=== PATIENT | male | born 1965 | race Caucasian/White ===

== ENCOUNTER 2019-04-03 19:50 | Observation (INO) | payer OTHER ==
[2019-04-03] MEDS ORDERED: THIAMINE 200 MG/2 ML IV ONE (20:18)
[2019-04-03] MEDS ORDERED: PROVENTIL 2.5 MG/3 ML NEB IH ONE ×2 (20:19→20:40)
--- NOTE | 2019-04-03 20:29 | ERPHSYRPT ---
- History of Present Illness Time Seen by Provider: 04/03/19 20:14 Source: patient, EMS Exam Limitations: no limitations Patient Subjective Stated Complaint: per ems "reports pt was laying in a yard and was nearly hit by a citizen mowing their lawn" ems reports pt is well known to [facility] and is often found intoxicated in locations around [place]. pt reports he has consumed 1/2 gallon of vodka today, reports he is an alcoholic and has been drinking for 40+ years. pt report history of pancreatitis. pt also reports recent pneumonia, states he is still coughing. Triage Nursing Assessment: pt is aox1, to self only, unaware of the year month and day, pt reports he is in [place]. pt answers some questions appropriately, pupils perrl, afebrile, resps easy and non labored, radial pulses strong and equal, cap refill < 3 seconds, pt skin pink warm dry. pt wretching upon exam. Physician History: 54-year-old white male with history of seizure, COPD, high blood pressure, pancreatitis, anxiety, depression Patient is brought by medics patient was apparently found by a citizen mowing his lawn. Patient states that he has been drinking up to a half a gallon of Vicodin today. Patient does state that he has been short of breath he does have a history of COPD. Past medical history includes seizures, COPD, high blood pressure, pancreatitis , anxiety, depression Patient states she's had OH x2 Social history chronic alcohol use chronic tobacco use denies illicit drug usethey date dissection do okay of I and in no in the andin her chest Timing/Duration: today Severity: moderate Modifying Factors: Improves With: nothing Associated Symptoms: shortness of breath, other (patient admits to drinking 1/2 gallon of vodka today), No nausea, No vomiting, No abdominal pain, No heartburn , No diaphoresis, No cough, No chills, No chest pain, No fever, No headaches, No loss of appetite, No malaise, No rash, No syncope, No seizure, No weakness Allergies/Adverse Reactions: shellfish derived Allergy (Verified 04/03/19 20:12) Hx Tetanus, Diphtheria Vaccination/Date Given: Yes Hx Influenza Vaccination/Date Given: No Hx Pneumococcal Vaccination/Date Given: No Immunizations Up to Date: Yes - Review of Systems Constitutional: No Fever, No Chills Eyes: No Symptoms Ears, Nose, & Throat: No Symptoms Respiratory: Dyspnea, No Cough Cardiac: No Chest Pain, No Edema, No Syncope Abdominal/Gastrointestinal: No Abdominal Pain, No Nausea, No Vomiting, No Diarrhea Musculoskeletal: No Back Pain, No Neck Pain Skin: No Rash Neurological: No Dizziness, No Focal Weakness, No Sensory Changes Psychological: Alcohol Abuse, No Drug Abuse, No Anxiety, No Depression, No Suicidal Ideations, No Homicidal Ideations, No Emotional Lability Endocrine: No Symptoms All Other Systems: Reviewed and Negative - Past Medical History Pertinent Past Medical History: Yes Neurological History: Seizures Cardiac History: Hypertension Respiratory History: COPD GI Medical History: Pancreatitis Psycho-Social History: Anxiety, Depression - Past Surgical History Past Surgical History: Yes Cardiac: Other Other Surgical History: "heart attack x2" - Social History Smoking Status: Current every day smoker Drug Use: none Patient Lives Alone: Yes - Nursing Vital Signs Nursing Vital Signs: Initial Vital Signs Temperature 99.0 F 04/03/19 19:59 Pulse Rate 96 H 04/03/19 19:59 Respiratory Rate 20 04/03/19 19:59 Blood Pressure 162/104 04/03/19 19:59 O2 Sat by Pulse Oximetry 95 04/03/19 19:59 Pain Scale Pain Intensity 8 - Physical Exam General Appearance: no apparent distress, alert, other (Slurry speech) Eye Exam: PERRL/EOMI, eyes nml inspection Ears, Nose, Throat Exam: normal ENT inspection, TMs normal, pharynx normal, moist mucous membranes Neck Exam: normal inspection, non-tender, supple, full range of motion Respiratory Exam: normal breath sounds, lungs clear, No respiratory distress Cardiovascular Exam: regular rate/rhythm, normal heart sounds, normal peripheral pulses, capillary refill <2 sec Gastrointestinal/Abdomen Exam: soft, normal bowel sounds, No tenderness, No mass Back Exam: normal inspection, normal range of motion, No CVA tenderness, No vertebral tenderness Extremity Exam: normal inspection, normal range of motion, pelvis stable Neurologic Exam: alert, oriented x 3, cooperative, surgical garment fitter II-XII nml as tested, normal mood/affect, nml cerebellar function, nml station & gait, sensation nml, No motor deficits Skin Exam: normal color, warm, dry, No rash Lymphatic Exam: No adenopathy SpO2 Interpretation: normal (95%) SpO2: 95 - Course Nursing assessment & vital signs reviewed: Yes EKG Interpreted by Me: RATE (100 bpm), NORMAL AXIS, Other (EKG: Sinus rhythm, 100 beats per minute, large amount of artifact, normal axis, no acute ST or T wave changes) - Radiology Exams Chest X-ray Interpretation: Interpreted by me (chest x ray: no acute disease process noted, positive copd) Ordered Tests: Active Orders 24 hr Category Date Time Status It Recruiter STAT Care 04/03/19 20:18 Active EKG-ER Only STAT Care 04/03/19 20:18 Active IV Insertion STAT Care 04/03/19 20:18 Active CHEST 1 VIEW (PORTABLE) Stat Exams 04/03/19 20:18 Taken ACETAMINOPHEN Stat Lab 04/03/19 20:25 Completed AMYLASE Stat Lab 04/03/19 20:25 Completed CBC W DIFF Stat Lab 04/03/19 20:25 Completed CMP Stat Lab 04/03/19 20:25 Completed ETHYL ALCOHOL Stat Lab 04/03/19 20:25 Completed SALICYLATE Stat Lab 04/03/19 20:25 Completed TROPONIN Q3H Lab 04/03/19 20:25 Completed TROPONIN Q3H Lab 04/03/19 23:30 Ordered TROPONIN Q3H Lab 04/04/19 02:30 Ordered TROPONIN Q3H Lab 04/04/19 05:30 Ordered TROPONIN Q3H Lab 04/04/19 08:30 Ordered UA W/RFX UR CULTURE Stat Lab 04/03/19 20:18 Uncollected Urine Triage Profile Stat Lab 04/03/19 20:18 Uncollected VENOUS BLOOD GAS Stat Lab 04/03/19 20:30 Completed Respiratory Therapy Assessment DAILY RT 04/03/19 20:49 Active Medication Summary Generic Name Dose Route Start Last Admin Trade Name Freq PRN Reason Stop Dose Admin Sodium Chloride 1,000 mls @ 999 mls/hr 04/03/19 21:09 04/03/19 21:15 Sodium Chloride 0.9% 1000 Ml IV 04/03/19 22:09 999 mls/hr .Q1H1M STA Administration Discontinued Medications Generic Name Dose Route Start Last Admin Trade Name Freq PRN Reason Stop Dose Admin Albuterol Sulfate 2.5 mg 04/03/19 20:19 04/03/19 20:44 Proventil 2.5 Mg/3 Ml Neb IH 04/03/19 20:20 2.5 mg STAT ONE Administration Albuterol Sulfate Confirm 04/03/19 20:40 Proventil 2.5 Mg/3 Ml Neb Administered 04/03/19 20:41 Dose 2.5 mg IH .STK-MED ONE Sodium Chloride Confirm 04/03/19 21:12 Sodium Chloride 0.9% 1000 Ml Administered 04/03/19 21:13 Dose 1,000 mls @ ud .ROUTE .STK-MED ONE Ondansetron HCl 4 mg 04/03/19 21:37 04/03/19 21:41 Zofran 4 Mg/2 Ml Vial IV 04/03/19 21:38 4 mg STAT ONE Administration Ondansetron HCl Confirm 04/03/19 21:36 Zofran 4 Mg/2 Ml Vial Administered 04/03/19 21:37 Dose 4 mg .ROUTE .STK-MED ONE Thiamine HCl 100 mg 04/03/19 20:18 04/03/19 21:15 Thiamine 200 Mg/2 Ml IV 04/03/19 20:19 100 mg STAT ONE Administration Thiamine HCl Confirm 04/03/19 21:12 Thiamine 200 Mg/2 Ml Administered 04/03/19 21:13 Dose 200 mg .ROUTE .STK-MED ONE Lab/Rad Data: Laboratory Result Diagrams 04/03/19 20:25 04/03/19 20:25 Laboratory Results 04/03/19 04/03/19 04/03/19 Range/Units 20:30 20:25 20:25 WBC (4.0-10.5) K/mm3 RBC (4.1-5.6) M/mm3 Hgb (12.5-18.0) gm/dl Hct (42-50) % MCV (78-100) fl MCH (26-32) pg MCHC (32-36) g/dl RDW (11.5-14.0) % Plt Count (150-450) K/mm3 MPV (6-9.5) fl Gran % (36.0-66.0) % Eos # (Auto) (0-0.5) Absolute Lymphs (auto) (1.0-4.6) Absolute Monos (auto) (0.0-1.3) Lymphocytes % (24.0-44.0) % Monocytes % (0.0-12.0) % Eosinophils % (0.00-5.0) % Basophils % (0.0-0.4) % Absolute Granulocytes (1.4-6.9) Basophils # (0-0.4) pO2/FiO2 Ratio 21.0 % VBG pH 7.48 H (7.32-7.42) VBG pCO2 at Pat Temp 41 L (42-55) mm/Hg VBG pO2 at Pat Temp 116 H (25-40) mm/Hg VBG HCO3 30.5 H* (22-28) meq/L VBG O2 Sat (Pool) 97.9 (95-100) VBG Base Excess 6.4 H (-2.0-2.0) VBG Hemoglobin 12.7 VBG Carboxyhemoglobin 6.7 (0.0-6.9) % T HGB POC Potassium 3.0 L* (3.5-5.1) Sodium 140 (137-145) mmol/L Potassium 3.2 L (3.5-5.1) mmol/L Chloride 92 L (98-107) mmol/L Carbon Dioxide 27 (22-30) mmol/L Anion Gap 24.4 H (5-15) MEQ/L BUN 13 (9-20) mg/dL Creatinine 1.02 (0.66-1.25) mg/dL Estimated GFR > 60.0 ML/MIN Glucose 85 (74-106) mg/dL Calcium 9.0 (8.4-10.2) mg/dL Total Bilirubin 0.60 (0.2-1.3) mg/dL AST 40 (17-59) U/L ALT 20 (0-50) U/L Alkaline Phosphatase 74 (38-126) U/L Troponin I < 0.012 (0.000-0.034) ng/mL Serum Total Protein 8.1 (6.3-8.2) g/dL Albumin 4.5 (3.5-5.0) g/dL Amylase 140 H (30-110) U/L Salicylates < 1.0 L (2-20) mg/dL Acetaminophen < 10 L (10-30) ug/ml Ethyl Alcohol 396 H (0-10) mg/dL 04/03/19 Range/Units 20:25 WBC 5.9 (4.0-10.5) K/mm3 RBC 4.88 (4.1-5.6) M/mm3 Hgb 12.0 L (12.5-18.0) gm/dl Hct 37.3 L (42-50) % MCV 76.4 L (78-100) fl MCH 24.5 L (26-32) pg MCHC 32.2 (32-36) g/dl RDW 21.2 H (11.5-14.0) % Plt Count 252 (150-450) K/mm3 MPV 10.0 H (6-9.5) fl Gran % 47.2 (36.0-66.0) % Eos # (Auto) 0.29 (0-0.5) Absolute Lymphs (auto) 2.33 (1.0-4.6) Absolute Monos (auto) 0.49 (0.0-1.3) Lymphocytes % 39.2 (24.0-44.0) % Monocytes % 8.2 (0.0-12.0) % Eosinophils % 4.9 (0.00-5.0) % Basophils % 0.5 (0.0-0.4) % Absolute Granulocytes 2.80 (1.4-6.9) Basophils # 0.03 (0-0.4) pO2/FiO2 Ratio % VBG pH (7.32-7.42) VBG pCO2 at Pat Temp (42-55) mm/Hg VBG pO2 at Pat Temp (25-40) mm/Hg VBG HCO3 (22-28) meq/L VBG O2 Sat (Opol) (95-100) VBG Base Excess (-2.0-2.0) VBG Hemoglobin VBG Carboxyhemoglobin (0.0-6.9) % T HGB POC Potassium (3.5-5.1) Sodium (137-145) mmol/L Potassium (3.5-5.1) mmol/L Chloride (98-107) mmol/L Carbon Dioxide (22-30) mmol/L Anion Gap (5-15) MEQ/L BUN (9-20) mg/dL Creatinine (0.66-1.25) mg/dL Estimated GFR ML/MIN Glucose (74-106) mg/dL Calcium (8.4-10.2) mg/dL Total Bilirubin (0.2-1.3) mg/dL AST (17-59) U/L ALT (0-50) U/L Alkaline Phosphatase (38-126) U/L Troponin I (0.000-0.034) ng/mL Serum Total Protein (6.3-8.2) g/dL Albumin (3.5-5.0) g/dL Amylase (30-110) U/L Salicylates (2-20) mg/dL Acetaminophen (10-30) ug/ml Ethyl Alcohol (0-10) mg/dL - Progress Progress: improved Progress Note: 04/03/19 22:02 This is a 54-year-old white male with history of seizures, COPD, high blood pressure, pancreatitis, anxiety, depression who states he's had an OH x2 Patient chronically drinks alcohol he states that he has been drinking a half- gallon of Vicodin Patient was apparently found laying in the yard and was almost run over by a lawnmower Patient arrives he states he's been somewhat short of breath recently but has no specific complaints he has somewhat slurred speech he is a cooperative to examination patient with stable vital signs patient with the blood alcohol level of 396 acetaminophen level salicylate level are within normal limits Patient has not provided urine for urine drug screen he denies any illicit drugs Patient with a chest x-ray no acute disease process noted there is COPD chronic in appearance. Patient with EKG sinus rhythm moderate amount of artifact 100 beats per minute normal axis no acute ST or T wave changes are noted patient with a normal troponin Chemistry essentially normal I discussed the patient's case with Dr. Lamb will go ahead and place patient on observation telemetry. Diagnosis alcohol intoxication, alcohol toxicity. Plan patient has been given IV normal saline 1 L thiamine 100 mg IV will continue IV fluids. Will write for Ativan when necessary. , Telemetry. Albuterol treatments when necessary. - Departure Departure Disposition: Observation Clinical Impression: alcohol toxicity, Chronic alcohol abuse Alcohol intoxication Qualifiers: Complication of substance-induced condition: uncomplicated Qualified Code(s): F10.920 - Alcohol use, unspecified with intoxication, uncomplicated Condition: Fair Critical Care Time: No Referrals: PAOLA LARSON PA [Primary Care Provider] -
[2019-04-03 20:33] LABS: BASOPHIL % 0.5 % (0.0-0.4); Basophil (Absolute #) 0.03 (0-0.4); Eosinophil % 4.9 % (0.00-5.0); Eosinophil (Absolute #) 0.29 (0-0.5); Granulocytes % 47.2 % (36.0-66.0); Hematocrit 37.3 % (42-50); Lymphocyte (Absolute #) 2.33 (1.0-4.6); Lymphocytes % 39.2 % (24.0-44.0); Mean Cell Volume 76.4 fl (78-100); Mean Corpuscular Hgb Concent. 32.2 g/dl (32-36); Monocyte (Absolute #) 0.49 (0.0-1.3); Monocytes % 8.2 % (0.0-12.0); Platelet Count 252 K/mm3 (150-450); Red Blood Count 4.88 M/mm3 (4.1-5.6); Red Cell Distribution Width 21.2 % (11.5-14.0); White Blood Count 5.9 K/mm3 (4.0-10.5)
[2019-04-03 20:36] LABS: Mean Corpuscular Hemoglobin 24.5 pg (26-32)
[2019-04-03 20:46] LABS: ALBUMIN 4.5 g/dL (3.5-5.0); ALKALINE PHOSPHATASE 74 U/L (38-126); AMYLASE 140 U/L (30-110); ANION GAP 24.4 MEQ/L (5-15); BLOOD UREA NITROGEN 13 mg/dL (9-20); CHLORIDE 92 mmol/L (98-107); Carbon Dioxide 27 mmol/L (22-30); Creatinine 1 1.02 mg/dL (0.66-1.25); Glucose 85 mg/dL (74-106); Potassium 3.2 mmol/L (3.5-5.1); SGOT/AST 40 U/L (17-59); SGPT/ALT 20 U/L (0-50); SODIUM 140 mmol/L (137-145); Total Protein 8.1 g/dL (6.3-8.2)
[2019-04-03 20:53] LABS: ACETAMINOPHEN < 10 ug/ml (10-30); ETHYL ALCOHOL 396 mg/dL (0-10); SALICYLATE < 1.0 mg/dL (2-20)
[2019-04-03 20:57] LABS: VBG BASE EXCESS 6.4 (-2.0-2.0); VBG CARBOXYHEMOGLOBIN 6.7 % T HGB (0.0-6.9); VBG HCO3- 30.5 meq/L (22-28); VBG HEMOGLOBIN 12.7; VBG O2 SATURATION 97.9 (95-100); VBG pH 7.48 (7.32-7.42)
[2019-04-03] MEDS ORDERED: Sodium Chloride 0.9% 1000 ML 1,000 ML IV STA (21:09)
[2019-04-03] MEDS ORDERED: THIAMINE 200 MG/2 ML ONE (21:12)
[2019-04-03] MEDS ORDERED: Sodium Chloride 0.9% 1000 ML 1,000 ML ONE (21:12)
[2019-04-03] MEDS ORDERED: Zofran 4 MG/2 ML VIAL ONE (21:36)
[2019-04-03] MEDS ORDERED: Zofran 4 MG/2 ML VIAL IV ONE (21:37)
[2019-04-03] MEDS ORDERED: PROVENTIL 2.5 MG/3 ML NEB IH PRN (23:06)
[2019-04-03] MEDS: Sodium Chloride 0.9% 1000 ML 1,000 ML IV SCH (23:24)
[2019-04-04] MEDS: Ativan 2 MG/1 ML VIAL IV PRN ×2 (00:28→16:14)
[2019-04-04 02:30] LABS: Amphetamine,Urine NEGATIVE (NEGATIVE); Barbiturate,Urine NEGATIVE (NEGATIVE); Benzodiazepine,Urine NEGATIVE (NEGATIVE); Cocaine,Urine NEGATIVE (NEGATIVE); Methadone,Urine NEGATIVE (NEGATIVE); Opiate,Urine NEGATIVE (NEGATIVE); PCP,Urine NEGATIVE (NEGATIVE); THC,Urine NEGATIVE (NEGATIVE)
[2019-04-04 02:34] LABS: Appearance CLEAR (CLEAR); Bilirubin NEGATIVE (NEGATIVE); Blood NEGATIVE Ery/ul (0-5); Glucose NEGATIVE (NEGATIVE); Ketones SMALL (NEGATIVE); Leukocyte Esterase NEGATIVE (NEGATIVE); Mucus SLIGHT /HPF (NEGATIVE); Nitrite NEGATIVE (NEGATIVE); Protein,Urine Dip 30 (Negative); Specific Gravity 1.015 (1.005-1.025); Urobilinogen 2 mg/dL (0-1)
[2019-04-04 05:38] LABS: BASOPHIL % 0.4 % (0.0-0.4); Basophil (Absolute #) 0.03 (0-0.4); Eosinophil % 3.1 % (0.00-5.0); Eosinophil (Absolute #) 0.25 (0-0.5); Granulocyte Absolute (ANC) 5.42 (1.4-6.9); Granulocytes % 66.1 % (36.0-66.0); Hematocrit 32.9 % (42-50); Hemoglobin 10.5 gm/dl (12.5-18.0); Lymphocyte (Absolute #) 1.96 (1.0-4.6); Mean Corpuscular Hgb Concent. 31.9 g/dl (32-36); Mean Platelet Volume 9.9 fl (6-9.5); Monocyte (Absolute #) 0.52 (0.0-1.3); Monocytes % 6.4 % (0.0-12.0); Platelet Count 210 K/mm3 (150-450); Red Blood Count 4.22 M/mm3 (4.1-5.6); White Blood Count 8.2 K/mm3 (4.0-10.5)
[2019-04-04 05:59] LABS: ALBUMIN 3.9 g/dL (3.5-5.0); ALKALINE PHOSPHATASE 57 U/L (38-126); ANION GAP 20.9 MEQ/L (5-15); BLOOD UREA NITROGEN 16 mg/dL (9-20); CHLORIDE 95 mmol/L (98-107); Calcium 8.1 mg/dL (8.4-10.2); Carbon Dioxide 26 mmol/L (22-30); Creatinine 1 0.92 mg/dL (0.66-1.25); ETHYL ALCOHOL 174 mg/dL (0-10); Glucose 77 mg/dL (74-106); Mean Corpuscular Hemoglobin 24.8 pg (26-32); Potassium 3.3 mmol/L (3.5-5.1); SGOT/AST 35 U/L (17-59); SGPT/ALT 17 U/L (0-50); SODIUM 138 mmol/L (137-145); Total Protein 7.2 g/dL (6.3-8.2)
--- NOTE | 2019-04-04 08:39 | XRAY ---
Indication: Short of breath. Comparison: None Portable chest hyperinflated with small 1 cm right upper lung irregular nodularity. Remaining lungs clear. Heart and mediastinal structures within normal limits. Bony thorax intact with old left rib fractures and surgical clips overlying the left shoulder. Impression: 1. Right upper lobe irregular nodularity. CT may yield further information. 2. COPD. 3. Negative for acute pneumonic process or CHF.
[2019-04-04] MEDS: Zofran 4 MG/2 ML VIAL IV PRN ×2 (12:09→20:39)
[2019-04-04] MEDS: Sodium Chloride 0.9% 1000 ML 1,000 ML IV SCH (12:10)
--- NOTE | 2019-04-04 13:19 | PCM.HP ---
History of Present Illness - Chief Complaint Chief Complaint: Alcohol intoxication / toxicity History of Present Illness: Mr.JORDAN CHRISTINE is a 54 year old male came to ER with alcohol intoxication - Review of Systems Constitutional: No Fever, No Chills Eyes: No Symptoms Ears, Nose, & Throat: No Symptoms Respiratory: No Cough, No Short Of Breath Cardiac: No Chest Pain, No Edema, No Syncope Abdominal/Gastrointestinal: No Abdominal Pain, No Nausea, No Vomiting, No Diarrhea Genitourinary Symptoms: No Dysuria Musculoskeletal: No Back Pain, No Neck Pain Skin: No Rash Neurological: No Dizziness, No Focal Weakness, No Sensory Changes Psychological: No Symptoms Endocrine: No Symptoms Hematologic/Lymphatic: No Symptoms Immunological/Allergic: No Symptoms Medications & Allergies Allergies/Adverse Reactions: Allergies Allergy/AdvReac Type Severity Reaction Status Date / Time shellfish derived Allergy Verified 04/03/19 20:12 - Past Medical History Past Medical History: Yes Neurological History: Seizures Cardiac History: Hypertension Respiratory History: COPD GI Medical History: Pancreatitis Pyscho-Social History: Anxiety, Depression - Past Surgical History Past Surgical History: Yes Cardiac History: Other Other Surgical History: "heart attack x2" - Social History Smoking Status: Current every day smoker How long have you smoked: 43 Exposure to second hand smoke: Yes Alcohol: Daily Drug Use: none - Physical Exam Vital Signs: Vital Signs - 24 hr Temp Pulse Resp BP Pulse Ox 04/04/19 11:21 98.1 F 95 H 22 157/83 94 L 04/04/19 07:36 98.1 F 96 H 20 144/83 95 04/04/19 04:15 98.5 F 92 H 18 128/80 97 04/04/19 04:00 18 04/04/19 02:07 98.8 F 108 H 20 177/98 94 L 04/03/19 23:44 100 H 20 94 L 04/03/19 22:05 95 04/03/19 21:50 93 H 19 04/03/19 21:40 95 H 19 139/84 04/03/19 20:52 112 H 23 95 04/03/19 20:50 103 H 24 94 L 04/03/19 20:41 118 H 33 H 131/81 04/03/19 19:59 99.0 F 96 H 20 162/104 95 General Appearance: no apparent distress, alert Neurologic Exam: alert, oriented x 3, cooperative, normal mood/affect, nml cerebellar function, nml station & gait, sensation nml, No motor deficits Eye Exam: PERRL/EOMI, eyes nml inspection Ears, Nose, Throat Exam: normal ENT inspection, TMs normal, pharynx normal, moist mucous membranes Neck Exam: normal inspection, non-tender, supple, full range of motion Respiratory Exam: normal breath sounds, lungs clear, No respiratory distress Cardiovascular Exam: regular rate/rhythm, normal heart sounds, normal peripheral pulses Gastrointestinal/Abdomen Exam: soft, normal bowel sounds, No tenderness, No mass Back Exam: normal inspection, normal range of motion, No CVA tenderness, No vertebral tenderness Extremity Exam: normal inspection, normal range of motion, pelvis stable Skin Exam: normal color, warm, dry, No rash Lymphatic Exam: No adenopathy Results - Labs Lab/Micro Results: Lab Results-Last 24 Hours 04/03/19 04/03/19 04/03/19 Range/Units 02:00 02:00 20:25 WBC 5.9 (4.0-10.5) K/mm3 RBC 4.88 (4.1-5.6) M/mm3 Hgb 12.0 L (12.5-18.0) gm/dl Hct 37.3 L (42-50) % MCV 76.4 L (78-100) fl MCH 24.5 L (26-32) pg MCHC 32.2 (32-36) g/dl RDW 21.2 H (11.5-14.0) % Plt Count 252 (150-450) K/mm3 MPV 10.0 H (6-9.5) fl Gran % 47.2 (36.0-66.0) % Eos # (Auto) 0.29 (0-0.5) Absolute Lymphs (auto) 2.33 (1.0-4.6) Absolute Monos (auto) 0.49 (0.0-1.3) Lymphocytes % 39.2 (24.0-44.0) % Monocytes % 8.2 (0.0-12.0) % Eosinophils % 4.9 (0.00-5.0) % Basophils % 0.5 (0.0-0.4) % Absolute Granulocytes 2.80 (1.4-6.9) Basophils # 0.03 (0-0.4) pO2/FiO2 Ratio % VBG pH (7.32-7.42) VBG pCO2 at Pat Temp (42-55) mm/Hg VBG pO2 at Pat Temp (25-40) mm/Hg VBG HCO3 (22-28) meq/L VBG O2 Sat (Pool) (95-100) VBG Base Excess (-2.0-2.0) VBG Hemoglobin VBG Carboxyhemoglobin (0.0-6.9) % T HGB POC Potassium (3.5-5.1) Sodium (137-145) mmol/L Potassium (3.5-5.1) mmol/L Chloride (98-107) mmol/L Carbon Dioxide (22-30) mmol/L Anion Gap (5-15) MEQ/L BUN (9-20) mg/dL Creatinine (0.66-1.25) mg/dL Estimated GFR ML/MIN Glucose (74-106) mg/dL Calcium (8.4-10.2) mg/dL Total Bilirubin (0.2-1.3) mg/dL AST (17-59) U/L ALT (0-50) U/L Alkaline Phosphatase (38-126) U/L Troponin I (0.000-0.034) ng/mL Serum Total Protein (6.3-8.2) g/dL Albumin (3.5-5.0) g/dL Amylase (30-110) U/L Urine Color YELLOW (YELLOW) Urine Appearance CLEAR (CLEAR) Urine pH 6.0 (5-6) Ur Specific [place] 1.015 (1.005-1.025) Urine Protein 30 (Negative) Urine Ketones SMALL (NEGATIVE) Urine Blood NEGATIVE (0-5) [place]/ul Urine Nitrite NEGATIVE (NEGATIVE) Urine Bilirubin NEGATIVE (NEGATIVE) Urine Urobilinogen 2 (0-1) mg/dL Ur Leukocyte Esterase NEGATIVE (NEGATIVE) Urine WBC (Auto) NONE (0-5) /HPF Urine RBC (Auto) NONE (0-2) /HPF U Epithel Cells (Auto) NONE (FEW) /HPF Urine Bacteria (Auto) NONE (NEGATIVE) /HPF Urine Mucus (Auto) SLIGHT (NEGATIVE) /HPF Urine Culture Reflexed NO (NO) Urine Glucose NEGATIVE (NEGATIVE) mg/dL Salicylates (2-20) mg/dL Urine Opiates Level NEGATIVE (NEGATIVE) Ur Methadone NEGATIVE (NEGATIVE) Acetaminophen (10-30) ug/ml Urine Barbiturates NEGATIVE (NEGATIVE) Ur Phencyclidine (PCP) NEGATIVE (NEGATIVE) Urine Amphetamine NEGATIVE (NEGATIVE) U Benzodiazepine Level NEGATIVE (NEGATIVE) Urine Cocaine NEGATIVE (NEGATIVE) Urine Marijuana (THC) NEGATIVE (NEGATIVE) Ethyl Alcohol (0-10) mg/dL 04/03/19 04/03/19 04/03/19 Range/Units 20:25 20:25 20:30 WBC (4.0-10.5) K/mm3 RBC (4.1-5.6) M/mm3 Hgb (12.5-18.0) gm/dl Hct (42-50) % MCV (78-100) fl MCH (26-32) pg MCHC (32-36) g/dl RDW (11.5-14.0) % Plt Count (150-450) K/mm3 MPV (6-9.5) fl Gran % (36.0-66.0) % Eos # (Auto) (0-0.5) Absolute Lymphs (auto) (1.0-4.6) Absolute Monos (auto) (0.0-1.3) Lymphocytes % (24.0-44.0) % Monocytes % (0.0-12.0) % Eosinophils % (0.00-5.0) % Basophils % (0.0-0.4) % Absolute Granulocytes (1.4-6.9) Basophils # (0-0.4) pO2/FiO2 Ratio 21.0 % VBG pH 7.48 H (7.32-7.42) VBG pCO2 at Pat Temp 41 L (42-55) mm/Hg VBG pO2 at Pat Temp 116 H (25-40) mm/Hg VBG HCO3 30.5 H* (22-28) meq/L VBG O2 Sat (Pool) 97.9 (95-100) VBG Base Excess 6.4 H (-2.0-2.0) VBG Hemoglobin 12.7 VBG Carboxyhemoglobin 6.7 (0.0-6.9) % T HGB POC Potassium 3.0 L* (3.5-5.1) Sodium 140 (137-145) mmol/L Potassium 3.2 L (3.5-5.1) mmol/L Chloride 92 L (98-107) mmol/L Carbon Dioxide 27 (22-30) mmol/L Anion Gap 24.4 H (5-15) MEQ/L BUN 13 (9-20) mg/dL Creatinine 1.02 (0.66-1.25) mg/dL Estimated GFR > 60.0 ML/MIN Glucose 85 (74-106) mg/dL Calcium 9.0 (8.4-10.2) mg/dL Total Bilirubin 0.60 (0.2-1.3) mg/dL AST 40 (17-59) U/L ALT 20 (0-50) U/L Alkaline Phosphatase 74 (38-126) U/L Troponin I < 0.012 (0.000-0.034) ng/mL Serum Total Protein 8.1 (6.3-8.2) g/dL Albumin 4.5 (3.5-5.0) g/dL Amylase 140 H (30-110) U/L Urine Color (YELLOW) Urine Appearance (CLEAR) Urine pH (5-6) Ur Specific [place] (1.005-1.025) Urine Protein (Negative) Urine Ketones (NEGATIVE) Urine Blood (0-5) [place]/ul Urine Nitrite (NEGATIVE) Urine Bilirubin (NEGATIVE) Urine Urobilinogen (0-1) mg/dL Ur Leukocyte Esterase (NEGATIVE) Urine WBC (Auto) (0-5) /HPF Urine RBC (Auto) (0-2) /HPF U Epithel Cells (Auto) (FEW) /HPF Urine Bacteria (Auto) (NEGATIVE) /HPF Urine Mucus (Auto) (NEGATIVE) /HPF Urine Culture Reflexed (NO) Urine Glucose (NEGATIVE) mg/dL Salicylates < 1.0 L (2-20) mg/dL Urine Opiates Level (NEGATIVE) Ur Methadone (NEGATIVE) Acetaminophen < 10 L (10-30) ug/ml Urine Barbiturates (NEGATIVE) Ur Phencyclidine (PCP) (NEGATIVE) Urine Amphetamine (NEGATIVE) U Benzodiazepine Level (NEGATIVE) Urine Cocaine (NEGATIVE) Urine Marijuana (THC) (NEGATIVE) Ethyl Alcohol 396 H (0-10) mg/dL 04/03/19 04/04/19 04/04/19 Range/Units 23:00 02:50 05:10 WBC (4.0-10.5) K/mm3 RBC (4.1-5.6) M/mm3 Hgb (12.5-18.0) gm/dl Hct (42-50) % MCV (78-100) fl MCH (26-32) pg MCHC (32-36) g/dl RDW (11.5-14.0) % Plt Count (150-450) K/mm3 MPV (6-9.5) fl Gran % (36.0-66.0) % Eos # (Auto) (0-0.5) Absolute Lymphs (auto) (1.0-4.6) Absolute Monos (auto) (0.0-1.3) Lymphocytes % (24.0-44.0) % Monocytes % (0.0-12.0) % Eosinophils % (0.00-5.0) % Basophils % (0.0-0.4) % Absolute Granulocytes (1.4-6.9) Basophils # (0-0.4) pO2/FiO2 Ratio % VBG pH (7.32-7.42) VBG pCO2 at Pat Temp (42-55) mm/Hg VBG pO2 at Pat Temp (25-40) mm/Hg VBG HCO3 (22-28) meq/L VBG O2 Sat (Pool) (95-100) VBG Base Excess (-2.0-2.0) VBG Hemoglobin VBG Carboxyhemoglobin (0.0-6.9) % T HGB POC Potassium (3.5-5.1) Sodium (137-145) mmol/L Potassium (3.5-5.1) mmol/L Chloride (98-107) mmol/L Carbon Dioxide (22-30) mmol/L Anion Gap (5-15) MEQ/L BUN (9-20) mg/dL Creatinine (0.66-1.25) mg/dL Estimated GFR ML/MIN Glucose (74-106) mg/dL Calcium (8.4-10.2) mg/dL Total Bilirubin (0.2-1.3) mg/dL AST (17-59) U/L ALT (0-50) U/L Alkaline Phosphatase (38-126) U/L Troponin I < 0.012 < 0.012 < 0.012 (0.000-0.034) ng/mL Serum Total Protein (6.3-8.2) g/dL Albumin (3.5-5.0) g/dL Amylase (30-110) U/L Urine Color (YELLOW) Urine Appearance (CLEAR) Urine pH (5-6) Ur Specific [place] (1.005-1.025) Urine Protein (Negative) Urine Ketones (NEGATIVE) Urine Blood (0-5) [place]/ul Urine Nitrite (NEGATIVE) Urine Bilirubin (NEGATIVE) Urine Urobilinogen (0-1) mg/dL Ur Leukocyte Esterase (NEGATIVE) Urine WBC (Auto) (0-5) /HPF Urine RBC (Auto) (0-2) /HPF U Epithel Cells (Auto) (FEW) /HPF Urine Bacteria (Auto) (NEGATIVE) /HPF Urine Mucus (Auto) (NEGATIVE) /HPF Urine Culture Reflexed (NO) Urine Glucose (NEGATIVE) mg/dL Salicylates (2-20) mg/dL Urine Opiates Level (NEGATIVE) Ur Methadone (NEGATIVE) Acetaminophen (10-30) ug/ml Urine Barbiturates (NEGATIVE) Ur Phencyclidine (PCP) (NEGATIVE) Urine Amphetamine (NEGATIVE) U Benzodiazepine Level (NEGATIVE) Urine Cocaine (NEGATIVE) Urine Marijuana (THC) (NEGATIVE) Ethyl Alcohol (0-10) mg/dL 04/04/19 04/04/19 04/04/19 Range/Units 05:10 05:10 08:49 WBC 8.2 (4.0-10.5) K/mm3 RBC 4.22 (4.1-5.6) M/mm3 Hgb 10.5 L (12.5-18.0) gm/dl Hct 32.9 L (42-50) % MCV 78.0 (78-100) fl MCH 24.8 L (26-32) pg MCHC 31.9 L (32-36) g/dl RDW 21.0 H (11.5-14.0) % Plt Count 210 (150-450) K/mm3 MPV 9.9 H (6-9.5) fl Gran % 66.1 H (36.0-66.0) % Eos # (Auto) 0.25 (0-0.5) Absolute Lymphs (auto) 1.96 (1.0-4.6) Absolute Monos (auto) 0.52 (0.0-1.3) Lymphocytes % 24.0 (24.0-44.0) % Monocytes % 6.4 (0.0-12.0) % Eosinophils % 3.1 (0.00-5.0) % Basophils % 0.4 (0.0-0.4) % Absolute Granulocytes 5.42 (1.4-6.9) Basophils # 0.03 (0-0.4) pO2/FiO2 Ratio % VBG pH (7.32-7.42) VBG pCO2 at Pat Temp (42-55) mm/Hg VBG pO2 at Pat Temp (25-40) mm/Hg VBG HCO3 (22-28) meq/L VBG O2 Sat (Pool) (95-100) VBG Base Excess (-2.0-2.0) VBG Hemoglobin VBG Carboxyhemoglobin (0.0-6.9) % T HGB POC Potassium (3.5-5.1) Sodium 138 (137-145) mmol/L Potassium 3.3 L (3.5-5.1) mmol/L Chloride 95 L (98-107) mmol/L Carbon Dioxide 26 (22-30) mmol/L Anion Gap 20.9 H (5-15) MEQ/L BUN 16 (9-20) mg/dL Creatinine 0.92 (0.66-1.25) mg/dL Estimated GFR > 60.0 ML/MIN Glucose 77 (74-106) mg/dL Calcium 8.1 L (8.4-10.2) mg/dL Total Bilirubin 0.50 (0.2-1.3) mg/dL AST 35 (17-59) U/L ALT 17 (0-50) U/L Alkaline Phosphatase 57 (38-126) U/L Troponin I < 0.012 (0.000-0.034) ng/mL Serum Total Protein 7.2 (6.3-8.2) g/dL Albumin 3.9 (3.5-5.0) g/dL Amylase (30-110) U/L Urine Color (YELLOW) Urine Appearance (CLEAR) Urine pH (5-6) Ur Specific [place] (1.005-1.025) Urine Protein (Negative) Urine Ketones (NEGATIVE) Urine Blood (0-5) [place]/ul Urine Nitrite (NEGATIVE) Urine Bilirubin (NEGATIVE) Urine Urobilinogen (0-1) mg/dL Ur Leukocyte Esterase (NEGATIVE) Urine WBC (Auto) (0-5) /HPF Urine RBC (Auto) (0-2) /HPF U Epithel Cells (Auto) (FEW) /HPF Urine Bacteria (Auto) (NEGATIVE) /HPF Urine Mucus (Auto) (NEGATIVE) /HPF Urine Culture Reflexed (NO) Urine Glucose (NEGATIVE) mg/dL Salicylates (2-20) mg/dL Urine Opiates Level (NEGATIVE) Ur Methadone (NEGATIVE) Acetaminophen (10-30) ug/ml Urine Barbiturates (NEGATIVE) Ur Phencyclidine (PCP) (NEGATIVE) Urine Amphetamine (NEGATIVE) U Benzodiazepine Level (NEGATIVE) Urine Cocaine (NEGATIVE) Urine Marijuana (THC) (NEGATIVE) Ethyl Alcohol 174 H (0-10) mg/dL - Radiology Impressions Radiology Exams & Impressions: Radiology Procedures Category Date Time Status CHEST 1 VIEW (PORTABLE) Stat Exams 04/03/19 20:18 Completed - Other Procedures and Tests Respiratory Therapy 04/03/19 20:49 Respiratory Therapy Assessment DAILY Assessment/Plan (1) Alcohol intoxication Current Visit: Yes Status: Acute Qualifiers: Complication of substance-induced condition: uncomplicated Qualified Code(s ): F10.920 - Alcohol use, unspecified with intoxication, uncomplicated (2) Chronic alcohol abuse Current Visit: Yes Status: Acute Code(s): F10.10 - ALCOHOL ABUSE, UNCOMPLICATED
[2019-04-04] MEDS: Sodium Chloride 0.9% 10 ML FLUSH Syringe IV SCH ×2 (16:04→21:56)
[2019-04-04] MEDS: MAALOX ES 30 ML UNIT DOSE PO PRN (17:48)
[2019-04-05] MEDS: MAALOX ES 30 ML UNIT DOSE PO PRN ×2 (03:52→09:19)
[2019-04-05] MEDS: Ativan 2 MG/1 ML VIAL IV PRN ×2 (04:15→11:36)
[2019-04-05] MEDS: Sodium Chloride 0.9% 10 ML FLUSH Syringe IV SCH ×2 (05:39→16:00)
[2019-04-05] MEDS: Zofran 4 MG/2 ML VIAL IV PRN (09:19)
--- NOTE | 2019-04-05 12:12 | PCM.DS ---
Discharge Summary Date of Admission: 04/03/19 23:02 Admitting Physician: TAWANNA TORRES Primary Care Provider: FREDERIC BONE Allergies Allergies shellfish derived Allergy (Verified 04/03/19 20:12) Hospital Summary - Hospital Course Hospital Course: Last Vital Signs Temp 98.4 F 04/05/19 08:00 Pulse 82 04/05/19 08:00 Resp 17 04/05/19 08:00 BP 158/94 04/05/19 08:00 Pulse Ox 95 04/05/19 08:00 Allergies shellfish derived Allergy (Verified 04/03/19 20:12) Active Medications Al Hydrox/Mg Hydrox/Simethicone (Maalox Es 30 Ml Unit Dose) 30 ml PO Q4H PRN PRN PRN Reason: INDIGESTION Stop: 05/04/19 16:51 Last Admin: 04/05/19 09:19 Dose: 30 ml Albuterol Sulfate (Proventil 2.5 Mg/3 Ml Neb) 2.5 mg IH Q4H PRN PRN PRN Reason: SHORTNESS OF BREATH/WHEEZING Stop: 05/03/19 23:05 Last Admin: 04/04/19 16:25 Dose: 2.5 mg Lorazepam (Ativan 2 Mg/1 Ml Vial) 1 mg IV PRN PRN PRN Reason: CIWA SCORE Stop: 05/03/19 23:05 Last Admin: 04/05/19 11:36 Dose: 1 mg Ondansetron HCl (Zofran 4 Mg/2 Ml Vial) 4 mg IV Q6H PRN PRN PRN Reason: NAUSEA/VOMITING Stop: 05/03/19 23:05 Last Admin: 04/05/19 09:19 Dose: 4 mg Sodium Chloride (Sodium Chloride 0.9% 10 Ml Flush Syringe) 10 ml IV Q8HT BUSTER Stop: 05/04/19 13:59 Last Admin: 04/05/19 05:39 Dose: 10 ml Intake & Output 04/05/19 04/06/19 11:59 11:59 Intake Total 960 Output Total 1100 Balance -140 Weight 67.8 kg Orders 04/04/19 14:00 NaCl 0.9% 10 ML FLUSH [Sodium Chloride 0.9% 10 ML FLUSH Syringe] 10 ml IV Q8HT 04/04/19 16:52 Mag Hydrox/Al Hydrox/Simeth [Maalox Es 30 ml Unit Dose] 30 ml PO Q4H PRN PRN 04/04/19 18:00 Code Status Order ROUTINE 04/04/19 Dinner Regular Diet - Vitals & Intake/Output Vital Signs: Vital Signs Temperature 98.4 F 04/05/19 08:00 Pulse Rate 82 04/05/19 08:00 Respiratory Rate 17 04/05/19 08:00 Blood Pressure 158/94 04/05/19 08:00 O2 Sat by Pulse Oximetry 95 04/05/19 08:00 Intake & Output: Intake & Output 04/03/19 04/04/19 04/05/19 04/06/19 11:59 11:59 11:59 11:59 Intake Total 1214 960 Output Total 300 1100 Balance 914 -140 Weight 69 kg 67.8 kg - Lab Result Diagrams: 04/04/19 05:10 04/04/19 05:10 - Radiology Exams Ordered Rad Exams-Entire Visit: Radiology Procedures Category Date Time Status CHEST 1 VIEW (PORTABLE) Stat Exams 04/03/19 20:18 Completed - Procedures and Test Procedures and Tests throughout Hospitalization: Therapy Orders & Screens 04/03/19 20:49 Respiratory Therapy Assessment DAILY Comment: Diagnosis: Shortness of Breath 04/03/19 23:06 Respiratory Therapy Consult ROUTINE Comment: Reason For Exam: Diagnosis: Shortness of Breath 04/04/19 02:41 Smoking Cessation Education ONCE Comment: Diagnosis: Alcohol intoxication / toxicity Smoking Status: Current every day smoker How long have you smoked: 43 Have you smoked in the past 12 months: Yes Approximately how many cigarettes per day: 10 - 20 Do you dip or chew tobacco: No Discharge Exam General Appearance: no apparent distress, alert Neurologic Exam: alert, oriented x 3, cooperative, normal mood/affect, nml cerebellar function, sensation nml, No motor deficits Skin Exam: normal color, warm, dry Eye Exam: PERRL, EOMI, eyes nml inspection Ears, Nose, Throat Exam: normal ENT inspection, pharynx normal, moist mucous membranes Neck Exam: normal inspection, non-tender, supple, full range of motion Respiratory Exam: normal breath sounds, lungs clear, No respiratory distress Cardiovascular Exam: regular rate/rhythm, normal heart sounds Gastrointestinal/Abdomen Exam: soft, No tenderness, No mass Extremity Exam: normal inspection, normal range of motion Back Exam: normal inspection, normal range of motion, No CVA tenderness, No vertebral tenderness Male Genitalia Exam: deferred Rectal Exam: deferred Final Diagnosis/Problem List - Final Discharge Diagnosis/Problem (1) Alcohol intoxication Current Visit: Yes Status: Resolved (2) Chronic alcohol abuse Current Visit: Yes Status: Chronic Code(s): F10.10 - ALCOHOL ABUSE, UNCOMPLICATED - Discharge Discharge Date: 04/05/19 Disposition: Home, Self-Care Condition: Stable Follow up with: PAOLA LARSON PA [Primary Care Provider] - 1 Week
[2019-04-05 12:29] VITALS: BP 130/87; PULSE 96; O2SAT 98
== END 2019-04-05 17:30 | disposition home or self-care (01) ==
LOC: ED 19:50 → MED SURG 23:02
PROVIDERS: ADMIT General Practice; ATTEND General Practice
DX: F10.129 Alcohol abuse with intoxication, unspecified (principal); I10 Essential (primary) hypertension; J44.9 Chronic obstructive pulmonary disease, unspecified; F17.200 Nicotine dependence, unspecified, uncomplicated; I25.2 Old myocardial infarction
CPT/HCPCS: 36000; 36415; 71045; 80053; 80307; 81001; 82150; 82805; 84484; 85025; 93005; 93041; 93268; 94640; 94760; 96360; 96361; 96374; 96376; 99285; G0378; G0480; G0481; 96375; 99284; J2060; J2405; J7609; A9270-GY